=== PATIENT | female | born 1940 | race Caucasian/White ===

== ENCOUNTER 2016-09-10 09:16 | Emergency (ER) | payer MEDICARE ==
[~2016-09-10] VITALS: Ht 157.5 cm; Wt 60.0 kg
[~2016-09-10 09:16] MED LIST: ACTONEL5 MG OR; ADLT ASA LOW81 MG OR; ASPIRIN ADULT L81 MG; ASPIRIN CHEWABL81 MG PO; AVALIDE1 TAB OR; BAYER500 MG PO; CALCIUM600 M2 PO; CRESTOR20 MG PO; ESTRACE VAG0.1 MG/GM VA; FISH OIL1000 MG PO; FLEXERIL5 M1 PO; HYDROCHLOROT12.5 MG OR; HYDROCHLOROT12.5 MG PO; HYDROCHLOROTH12.5 MG OR; HYZAAR1 TA1 OR; HYZAAR1 TAB PO; LIPITOR40 MG OR; LORTAB OR; MEDDOSEPAK PO; METOPROL TAR50 MG PO; METOPROLOL50 MG OR; MICARDIS OR; NIACIN500 MG OR; NORCO1 TA1 PO; PAXIL20 MG OR; PLAVIX75 MG OR; PRAVASTATIN40 MG; PRAVASTATIN40 MG OR; PROTONIX40 M2 PO; XANAX0.25 MG PO; ZYRTEC-D AL1 OR
[2016-09-10] MEDS ORDERED: MUCINEX600 MG PO (09:54)
[2016-09-10] MEDS ORDERED: AMOXICILLIN500 MG PO (09:54)
[2016-09-10 09:56] VITALS: BP 128/69
[2016-09-10] MEDS ORDERED: CLOPIDOGREL75 MG PO (10:00)
[2016-09-10] MEDS ORDERED: ALPRAZOLAM0.5 M2 PO (10:00)
[2016-09-10] MEDS ORDERED: AMLODIPINE BES2.5 MG PO (10:00)
[2016-09-10] MEDS ORDERED: AMIODARONE200 MG PO (10:01)
[2016-09-10] MEDS ORDERED: PRAVASTATIN SOD40 MG PO (10:01)
[2016-09-10] MEDS ORDERED: LOPRESSOR 550 MG/TAB PO (10:03)
== END 2016-09-10 10:01 | disposition home or self-care (01) ==
LOC: ED 09:16
DX: J40 Bronchitis, not specified as acute or chronic (principal); I10 Essential (primary) hypertension; E78.5 Hyperlipidemia, unspecified; I25.2 Old myocardial infarction; Z95.1 Presence of aortocoronary bypass graft

== ENCOUNTER 2016-11-12 08:52 | Emergency (ER) | payer MEDICARE ==
[~2016-11-12] VITALS: Ht 157.5 cm; Wt 56.0 kg
[~2016-11-12 08:52] MED LIST changes: +ALPRAZOLAM0.5 M2 PO; +AMIODARONE200 MG PO; +AMLODIPINE BES2.5 MG PO; +AMOXICILLIN500 MG PO; +CLOPIDOGREL75 MG PO; +LOPRESSOR 550 MG/TAB PO; +MUCINEX600 MG PO; +PRAVASTATIN SOD40 MG PO
[2016-11-12 10:10] VITALS: BP 140/66
== END 2016-11-12 10:17 | disposition home or self-care (01) ==
LOC: ED 08:52
PROC: 0HQ1XZZ Repair Face Skin, External Approach (ICD-10-PCS; principal; 2016-11-12)
DX: S01.81XA Laceration without foreign body of other part of head, initial encounter (principal); I10 Essential (primary) hypertension; E78.5 Hyperlipidemia, unspecified; I25.2 Old myocardial infarction; W55.22XA Struck by cow, initial encounter; Y93.K9 Activity, other involving animal care; Y92.009 Unspecified place in unspecified non-institutional (private) residence as the place of occurrence of the external cause; Z95.1 Presence of aortocoronary bypass graft

== ENCOUNTER 2017-07-20 12:52 | Emergency (ER) | payer MEDICARE ==
[~2017-07-20] VITALS: Ht 157.5 cm; Wt 60.0 kg
[2017-07-20 13:50] LABS: AMYLASE 76 u/l (30-110); LIPASE 157 u/l (23-300)
[2017-07-20] MEDS ORDERED: PEPCID40 MG PO (15:40)
[2017-07-20 15:45] VITALS: BP 137/63
== END 2017-07-20 15:48 | disposition home or self-care (01) ==
LOC: ED 12:52
PROVIDERS: Family Medicine
DX: K20.9 Esophagitis, unspecified (principal); R07.9 Chest pain, unspecified; I10 Essential (primary) hypertension; E78.4 Other hyperlipidemia

== ENCOUNTER 2017-10-02 00:42 | Emergency (ER) | payer MEDICARE ==
[~2017-10-02] VITALS: Ht 157.5 cm; Wt 53.2 kg
[~2017-10-02 00:42] MED LIST changes: +PEPCID40 MG PO
[2017-10-02 01:13] LABS: HEMATOCRIT 37.7 % (37.0-47.0); HEMOGLOBIN 12.7 g/dl (12.0-16.0); IMMATURE GRANULOCYTES 0.3 % (0.0-1.0); MEAN CELL VOLUME 92.6 fL CALC (80.0-100.0); MEAN CORPUSCULAR HGB 31.2 pG CALC (26.0-32.0); MEAN CORPUSCULAR HGB CONC 33.7 g/L CALC (32.0-36.0); NEUT# 4.74 thou/uL (2.00-7.15); RED BLOOD COUNT 4.07 mill/uL (4.20-5.60)
[2017-10-02 01:23] LABS: ALBUMIN 4.1 g/dL (3.2-5.0); ALKALINE PHOSPHATASE 99 u/l (38-126); ANION GAP 10 (6-22 (CALC)); BILIRUBIN, TOTAL 0.3 mg/dL (0.0-1.4); BUN 18 mg/dL (8-23); BUN/CREATININE RATIO 28 (12-20 (CALC)); CARBON DIOXIDE 28 mmol/l (22-30); CHLORIDE 104 mmol/l (95-108); CREATININE 0.7 mg/dL (0.5-1.0); GFR > 60 ML/MIN (>=60 (CALC)); GFR FOR AFR.AMER. > 60 ML/MIN (>=60 (CALC)); MAGNESIUM 2.2 mg/dL (1.6-2.3); POTASSIUM 3.4 mmol/l (3.5-5.1); SGOT/AST 24 u/l (9-36); SGPT/ALT 32 u/l (11-66); SODIUM 138 mmol/l (137-146); TOTAL PROTEIN 7.4 g/dL (6.3-8.2)
[2017-10-02 01:35] LABS: MYOGLOBIN 23 ng/mL (0 - 62)
[2017-10-02] MEDS ORDERED: K-DUR/KLOR-CON20 MEQ PO (02:10)
[2017-10-02 02:22] VITALS: BP 129/62
== END 2017-10-02 02:22 | disposition home or self-care (01) ==
LOC: ED 00:42
PROVIDERS: Family Medicine
DX: R00.2 Palpitations (principal); R00.1 Bradycardia, unspecified; R19.7 Diarrhea, unspecified; E87.6 Hypokalemia; I25.2 Old myocardial infarction; I48.91 Unspecified atrial fibrillation; Z95.818 Presence of other cardiac implants and grafts

== ENCOUNTER → 2018-06-25 | Outpatient (REF) | payer MEDICARE ==
[~2018-06-25] MED LIST changes: +K-DUR/KLOR-CON20 MEQ PO; +METOPROLOL50 M1 PO
[2018-06-25 09:29] LABS: ANION GAP 13 (6-22 (CALC)); BUN 18 mg/dL (8-23); BUN/CREATININE RATIO 31 (12-20 (CALC)); CARBON DIOXIDE 30 mmol/l (22-30); CHLORIDE 100 mmol/l (95-108); CREATININE 0.6 mg/dL (0.5-1.0); GFR > 60 ML/MIN (>=60 (CALC)); GFR FOR AFR.AMER. > 60 ML/MIN (>=60 (CALC)); POTASSIUM 4.3 mmol/l (3.5-5.1); SODIUM 138 mmol/l (137-146)
== END | disposition home or self-care (01) ==
LOC: LAB 08:01
PROVIDERS: ATTEND Nurse Practitioner Family
DX: I10 Essential (primary) hypertension (principal)

== ENCOUNTER 2023-10-28 02:02 | Emergency (ER) | payer MEDICARE ==
[~2023-10-28] VITALS: Ht 154.9 cm; Wt 55.0 kg
[2023-10-28 02:14] VITALS: BP 151/58
[2023-10-28 02:15] VITALS: BP 144/73
[2023-10-28] MEDS ORDERED: HYDROcodone 5 MG/Acetaminophen 325 MG/COMBO PO ONE (02:25)
[2023-10-28] MEDS ORDERED: CLINDAMYCIN HCL 150 MG CAP PO ONE (02:25)
[2023-10-28] MEDS ORDERED: KETOROLAC TROMETHAMINE 30 MG/ML SDV IM ONE (02:25)
[2023-10-28] MEDS ORDERED: TRAMADOL HCL50 MG PO (02:26)
[2023-10-28] MEDS ORDERED: CLINDAMYCIN300 M1 PO (02:26)
[2023-10-28 02:31] VITALS: BP 127/73
[2023-10-28 02:40] VITALS: BP 127/73
[2023-10-28] MEDS ORDERED: LORTAB 5/3255 MG PO (21:51)
[2023-10-28] MEDS ORDERED: NAPROXEN375 MG PO (21:51)
== END 2023-10-28 02:40 | disposition home or self-care (01) ==
LOC: ED 02:02
DX: K08.89 Other specified disorders of teeth and supporting structures (principal); R22.0 Localized swelling, mass and lump, head; I10 Essential (primary) hypertension; I48.91 Unspecified atrial fibrillation; I25.2 Old myocardial infarction; Z95.1 Presence of aortocoronary bypass graft; R68.84 Jaw pain
CPT/HCPCS: J0561

== ENCOUNTER 2023-10-28 20:49 | Emergency (ER) | payer MEDICARE ==
[~2023-10-28] VITALS: Ht 154.9 cm; Wt 54.0 kg
[~2023-10-28 20:49] MED LIST changes: +CLINDAMYCIN300 M1 PO; +TRAMADOL HCL50 MG PO
[2023-10-28] MEDS ORDERED: KETOROLAC TROMETHAMINE 30 MG/ML SDV IM ONE (21:50)
[2023-10-28] MEDS ORDERED: PENICILLIN G BENZATHINE 1.2 MU/2 ML SYR IM ONE (21:50)
[2023-10-28] MEDS ORDERED: HYDROcodone 5 MG/Acetaminophen 325 MG/COMBO PO ONE (21:50)
[2023-10-28] MEDS ORDERED: NAPROXEN375 MG PO (21:51)
[2023-10-28] MEDS ORDERED: LORTAB 5/3255 MG PO (21:51)
[2023-10-28 22:40] VITALS: BP 142/79
== END 2023-10-28 22:40 | disposition home or self-care (01) ==
LOC: ED 20:49
DX: K08.89 Other specified disorders of teeth and supporting structures (principal); R22.0 Localized swelling, mass and lump, head; I10 Essential (primary) hypertension; I48.91 Unspecified atrial fibrillation; I25.2 Old myocardial infarction; Z95.1 Presence of aortocoronary bypass graft
CPT/HCPCS: J0561

== ENCOUNTER 2023-12-07 07:39 | Day surgery (SDC) | payer MEDICARE ==
[~2023-12-07] VITALS: Ht 154.9 cm; Wt 54.0 kg
[~2023-12-07 07:39] MED LIST changes: +AMITRIPTYLINE H10 MG PO; +DIOVAN HC1 PO; +ELIQUIS5 MG PO; +EZETIMIBE10 MG; +LORTAB 5/3255 MG PO; +NAPROXEN375 MG PO; +PRAVASTATIN80 MG PO
[2023-12-07] MEDS ORDERED: FAMOTIDINE 10MG/ML 2ML SDV IV ONE (07:44)
[2023-12-07] MEDS ORDERED: LACTATED RINGER'S 1,000 ML IV ONE (07:44)
[2023-12-07 10:25] VITALS: BP 125/71
[2023-12-07] MEDS ORDERED: LIDOCAINE HCL 2% 2ML SDV IV ONE (14:09)
[2023-12-07] MEDS ORDERED: PROPOFOL 200 MG/20 ML VIAL IV ONE (14:09)
[2023-12-07] MEDS ORDERED: GLYCOPYRROLATE 0.2 MG/ML IV ONE (14:09)
[2023-12-07] MEDS ORDERED: ePHEDrine SULFATE 50 MG/ML AMP IV ONE (14:09)
== END 2023-12-07 10:12 | disposition home or self-care (01) ==
LOC: ENDO 07:39 → ORM 09:30 → ENDO 09:30
PROVIDERS: ATTEND Surgery
PROC: 0DJD8ZZ Inspection of Lower Intestinal Tract, Via Natural or Artificial Opening Endoscopic (ICD-10-PCS; principal; 2023-12-07)
DX: K57.31 Diverticulosis of large intestine without perforation or abscess with bleeding (principal); K64.8 Other hemorrhoids; I10 Essential (primary) hypertension; I25.10 Atherosclerotic heart disease of native coronary artery without angina pectoris; I25.2 Old myocardial infarction; Z80.0 Family history of malignant neoplasm of digestive organs; Z86.010 Personal history of colon polyps